=== PATIENT | male | born 1960 | race Caucasian/White ===

== ENCOUNTER 2022-07-10 14:59 | Emergency (ER) | payer OTHER ==
[2022-07-10] MEDS ORDERED: Pepcid 20 MG PO ONE (15:35)
[2022-07-10] MEDS ORDERED: solu-MEDROL 125 MG, Sterile H2O 10 ml 2 ML IM ONE ×2 (15:35)
[2022-07-10] MEDS ORDERED: BENADRYL 50 MG/ML IM ONE (15:35)
[2022-07-10] MEDS ORDERED: BENADRYL 50 MG/ML ONE (15:59)
[2022-07-10] MEDS ORDERED: Sterile H2O 10 ml IJ ONE (15:59)
[2022-07-10] MEDS ORDERED: Pepcid 20 MG ONE ×2 (15:59→16:02)
[2022-07-10] MEDS ORDERED: solu-MEDROL ONE (15:59)
--- NOTE | 2022-07-10 16:34 | ERPHSYRPT ---
- History of Present Illness Time Seen by Provider: 07/10/22 15:08 Source: patient Exam Limitations: no limitations Patient Subjective Stated Complaint: PT states "I was stung by a bee on my forearm and it is all swollen and red. IT feels stiff." Triage Nursing Assessment: Pt presented alert and oriented X 3, skin pwd. Pt ambulates with an upright steady gait. PT left forearm is swollen and red, no difficulty breathing, no haorseness , no coughing. Physician History: 61-year-old with history of diabetes mellitus on metformin presented in the ER with bee sting on left forearm almost an hour prior to arrival with p rogressively worsening pain and swelling and itching. He has taken Benadryl at home with no significant relief. Reports tightness in the forearm and pain with movements of the finger/wrist and forearm. No numbness or tingling in the fingers. No difficulty breathing or throat closing sensation. Timing/Duration: hour(s) (1), constant, sudden, worse Quality: itchy, painful Severity: moderate Location: extremities Possible Causes: insect sting Modifying Factors: Improves With: antihistamine Associated Symptoms: rash, swelling/mass/lumps Allergies/Adverse Reactions: bee venom protein (honey bee) Allergy (Severe, Verified 07/10/22 15:13) Swelling peanut Allergy (Severe, Verified 07/10/22 15:13) Swelling shellfish derived Allergy (Severe, Verified 07/10/22 15:13) Swelling Home Medications: Glimepiride 2 mg [Amaryl 2 MG] 2 mg PO DAILY 07/10/22 [History] Lisinopril/Hydrochlorothiazide [Lisinopril-Hctz 20-12.5 mg Tab] 1 each PO DAILY 07/10/22 [History] Simvastatin 10 mg [Zocor 10MG] 10 mg PO DAILY 07/10/22 [History] Hx Tetanus, Diphtheria Vaccination/Date Given: No Hx Influenza Vaccination/Date Given: No Hx Pneumococcal Vaccination/Date Given: No Immunizations Up to Date: Yes Travel Risk - International Travel Have you traveled outside of the country in past 3 weeks: No - Coronavirus Screening Are you exhibiting any of the following symptoms?: No Close contact with a COVID-19 positive Pt in past 14-21 Days: No - Vaccine Status Have you recieved a Covid-19 vaccination: No - Review of Systems Constitutional: No Symptoms Eyes: No Symptoms Ears, Nose, & Throat: No Symptoms Respiratory: No Symptoms Cardiac: No Symptoms Abdominal/Gastrointestinal: No Symptoms Musculoskeletal: No Symptoms Skin: Rash Neurological: No Symptoms Endocrine: No Symptoms Hematologic/Lymphatic: No Symptoms - Past Medical History Pertinent Past Medical History: Yes Neurological History: No Pertinent History ENT History: No Pertinent History Cardiac History: No Pertinent History Respiratory History: No Pertinent History Endocrine Medical History: No Pertinent History Musculoskeletal History: Other GI Medical History: No Pertinent History History: No Pertinent History Psycho-Social History: No Pertinent History Male Reproductive Disorders: No Pertinent History Other Medical History: l shoulder injury - Past Surgical History Past Surgical History: Yes Neuro Surgical History: No Pertinent History Cardiac: No Pertinent History Respiratory: No Pertinent History Gastrointestinal: Other Genitourinary: No Pertinent History Musculoskeletal: Orthopedic Surgery Male Surgical History: No Pertinent History Other Surgical History: [place] surgery and fistual repair in the past - Social History Smoking Status: Never smoker Exposure to second hand smoke: No Drug Use: none Patient Lives Alone: No - Nursing Vital Signs Nursing Vital Signs: Initial Vital Signs Temperature 97.6 F 07/10/22 15:08 Pulse Rate 92 H 07/10/22 15:08 Respiratory Rate 20 07/10/22 15:08 Blood Pressure 135/77 07/10/22 15:08 O2 Sat by Pulse Oximetry 95 07/10/22 15:08 Pain Scale Pain Intensity 0 - Physical Exam General Appearance: no apparent distress, alert Eye Exam: PERRL/EOMI Ears, Nose, Throat Exam: normal ENT inspection, pharynx normal, moist mucous membranes Neck Exam: normal inspection, non-tender, supple, full range of motion Respiratory Exam: normal breath sounds, lungs clear Cardiovascular Exam: regular rate/rhythm, normal heart sounds Back Exam: normal inspection Extremity Exam: swelling (Left forearm with tongue italo. Blanchable. Mild increased temperature. Minimal tenderness. Intact range of motion at wrist and elbow/fingers. Distal neurovascular intact.) Neurologic Exam: alert, oriented x 3, cooperative Skin Exam: normal color SpO2 Interpretation: normal SpO2: 98 O2 Delivery: Room Air Ordered Tests: Active Orders 24 hr Category Date Time Status POCT Glucose Check STAT Care 07/10/22 15:35 Active POCT GLUCOSE Stat Lab 07/10/22 16:27 Completed Medication Summary Discontinued Medications Generic Name Dose Route Start Last Admin Trade Name Edna PRN Reason Stop Dose Admin Methylprednisolone Sodium 0 mg 07/10/22 15:35 07/10/22 16:01 Succinate 125 mg/ Sterile IM 07/10/22 15:36 125 mg Water 2 ml STAT ONE Administration Diphenhydramine HCl 25 mg 07/10/22 15:35 07/10/22 16:02 Diphenhydramine Hcl 50 Mg/Ml Vial IM 07/10/22 15:36 25 mg STAT ONE Administration Diphenhydramine HCl Confirm 07/10/22 15:59 Diphenhydramine Hcl 50 Mg/Ml Vial Administered 07/10/22 16:00 Dose 50 mg .ROUTE .STK-MED ONE Famotidine 40 mg 07/10/22 15:35 07/10/22 16:01 Famotidine 20 Mg Tablet PO 07/10/22 15:36 40 mg STAT ONE Administration Famotidine Confirm 07/10/22 15:59 Famotidine 20 Mg Tablet Administered 07/10/22 16:00 Dose 20 mg .ROUTE .STK-MED ONE Famotidine Confirm 07/10/22 16:02 Famotidine 20 Mg Tablet Administered 07/10/22 16:03 Dose 20 mg .ROUTE .STK-MED ONE Methylprednisolone Sodium Succinate Confirm 07/10/22 15:59 Methylprednis Sod Succ 125 Mg/2 Ml Vial Administered 07/10/22 16:00 Dose 125 mg .ROUTE .STK-MED ONE Sterile Water Confirm 07/10/22 15:59 Water For Injection,Sterile 10 Ml Vial Administered 07/10/22 16:00 Dose 10 ml IJ .STK-MED ONE Lab/Rad Data: Laboratory Results 07/10/22 Range/Units 16:27 POC Glucometer 108 H (74 to 106) mg/dL - Progress Progress: improved Progress Note: 07/10/22 16:31 Is given Solu-Medrol/Benadryl/Pepcid, on reevaluation swelling started to improve. No respiratory symptoms. We will continue with these meds to go home, recommended elevation ice and will also give EpiPen to use as needed. Discussed signs symptoms of worsening needing return to ER which he seems understanding. Counseled pt/family regarding: diagnosis, need for follow-up - Departure Departure Disposition: Home Clinical Impression: Bee sting reaction Condition: Stable Critical Care Time: No Referrals: ESTELA ROBLES MD [Primary Care Provider] - Follow up/PCP as directed (In 2 days for reevaluation) Instructions: Insect Bites and Stings (DC) Additional Instructions: Take Tylenol as needed for pain. Keep it elevated. Intermittent ice application. Follow-up with primary care for reevaluation. Return to ER for increasing swelling, difficulty movements at elbow/wrist left fingers or if havi ng throat closing sensation/difficulty breathing. Use EpiPen as needed. Prescriptions: Diphenhydramine HCl 25 mg [Benadryl 25 mg Capsule] 25 mg PO Q4H PRN PRN #20 cap PRN Reason: Allergies Prednisone 20 mg [Deltasone 20 mg] 60 mg PO DAILY 5 Days #15 tablet Famotidine 20 mg [Pepcid 20 MG] 20 mg PO BID #10 tablet EPINEPHrine [Symjepi] 0.3 mg IJ DIRECTIONS UNKNOWN PRN 1 Days #1 unit PRN Reason: Allergies
[2022-07-10 17:24] VITALS: BP 116/63; PULSE 84; O2SAT 97
== END 2022-07-10 16:53 | disposition home or self-care (01) ==
LOC: ED 14:59
DX: T63.441A Toxic effect of venom of bees, accidental (unintentional), initial encounter (principal); M79.632 Pain in left forearm; Z79.899 Other long term (current) drug therapy; Z28.310 Unvaccinated for COVID-19; Z79.52 Long term (current) use of systemic steroids
CPT/HCPCS: 82947; 96372; 99283; J1200; J2930; A9270-GY

== ENCOUNTER 2024-05-23 09:01 | Day surgery (SDC) | payer BC ==
[2024-05-23] MEDS: TYLENOL EXTRA STRENGTH 500 MG PO ONE (09:28)
[2024-05-23] MEDS: Lactated Ringers 1,000 ML IV SCH (09:28)
[2024-05-23] MEDS: CLINDAMYCIN-D5W 900 MG/50 ML*** 900 MG/50 ML BAG IV STA (09:28)
[2024-05-23] MEDS: Decadron 4 MG PO ONE (09:29)
[2024-05-23] MEDS: celeBREX 100 MG PO ONE (09:29)
[2024-05-23] MEDS: NEURONTIN PO ONE (09:29)
[2024-05-23 09:55] LABS: Absolute Neutrophil Ct (ANC) 6.36 x10^3/uL (1.78-5.38); BASOPHIL % 0.4 % (0.2-1.2); Basophil (Absolute #) 0.04 x10^3/uL (0.01-0.08); Eosinophil % 2.4 % (0.8-7.0); Eosinophil (Absolute #) 0.23 x10^3/uL (0.04-0.54); Hematocrit 42.6 % (40.1-51.0); Hemoglobin 14.3 g/dL (13.7-17.5); IMMATURE GRAN # 0.04 x10^3u/L (0.001-0.031); IMMATURE GRAN % 0.4 % (0.001-0.429); Lymphocyte (Absolute #) 2.19 x10^3/uL (1.32-3.57); Lymphocytes % 23.1 % (21.8-53.1); Mean Cell Volume 87.1 fL (79.0-92.2); Mean Corpuscular Hemoglobin 29.2 pg (25.7-32.2); Mean Corpuscular Hgb Concent. 33.6 g/dL (32.3-36.5); Mean Platelet Volume 9.4 fL (9.4-12.4); Monocyte (Absolute #) 0.63 x10^3/uL (0.30-0.82); Monocytes % 6.6 % (5.3-12.2); Neutrophil % 67.1 % (34.0-67.9); Platelet Count 193 x10^3/uL (163-337); Red Blood Count 4.89 x10^6/uL (4.63-6.08); Red Cell Distribution Width 12.8 % (11.6-14.4); White Blood Count 9.5 x10^3/uL (4.23-9.07)
[2024-05-23] MEDS ORDERED: Marcaine Mpf 0.5% Vial 30 Ml ONE (10:05)
[2024-05-23] MEDS ORDERED: Epinephrine Preservative Free 1 MG/ML ONE ×3 (10:05→14:49)
[2024-05-23] MEDS ORDERED: Kenalog-40 ONE (10:05)
[2024-05-23 10:08] LABS: ALBUMIN 3.7 g/dL (3.5-5.0); BILIRUBIN,TOTAL 0.6 mg/dL (0.2-1.3); Calcium 9.1 mg/dL (8.4-10.2); Creatinine 1 0.9 mg/dL (0.66-1.25); Total Protein 6.7 g/dL (6.3-8.2)
[2024-05-23] MEDS ORDERED: Versed 2 MG/2 ML Injection ONE (12:18)
[2024-05-23] MEDS ORDERED: Marcaine 0.5%/Epinephrine 10 ML ONE (12:18)
[2024-05-23] MEDS ORDERED: Xylocaine-Mpf 2% 5 Ml Vial ONE ×2 (12:26→12:54)
[2024-05-23] MEDS ORDERED: ROCURONIUM BROMIDE IV ONE ×2 (12:50→12:54)
[2024-05-23] MEDS ORDERED: DIPRIVAN 200 MG/20 ML IV ONE (12:53)
[2024-05-23] MEDS ORDERED: Decadron 4 MG INJ ONE (12:54)
[2024-05-23] MEDS ORDERED: Zofran 4 MG/2 ML VIAL ONE (12:54)
[2024-05-23] MEDS ORDERED: SUBLIMAZE 100 MCG/2 ML ONE (13:02)
[2024-05-23] MEDS ORDERED: Lactated Ringers 1,000 ML IV ONE ×2 (13:02→14:39)
[2024-05-23] MEDS ORDERED: PHENYLEPHRINE HCL ONE (13:42)
[2024-05-23] MEDS ORDERED: BRIDION 200MG/2ML IV ONE (14:32)
[2024-05-23 17:03] VITALS: RESP 18
[2024-05-23 17:16] VITALS: BP 120/83; PULSE 94; TEMP 97; O2SAT 97
--- NOTE | 2024-05-25 09:48 | OP ---
SURGERY DATE/TIME: 05/23/2024 4885 - [id number] PREOPERATIVE DIAGNOSIS: Right full-thickness rotator cuff tear. PROCEDURE: Right arthroscopic rotator cuff repair. SURGEON: Adal Valladares MD SILK BRUSHER: Marie Rowe ANESTHESIA: General, plus interscalene block. FINDINGS: A 15 mm supraspinatus tear with about 1.5 cm of retraction. The rotator cuff surfaces were grade 1. Biceps tendon was not well visualized. The labrum was frayed. ESTIMATED BLOOD LOSS: 0. FLUIDS: Per the anesthesia records. SPECIMENS: None. DRAINS: None. COMPLICATIONS: None. INDICATIONS: Patient is a 63-year-old white male with painful right shoulder refractory to conservative care. He wished to have this repaired for pain relief. DESCRIPTION OF PROCEDURE AND FINDINGS: The patient was seen in the holding room. We identified the right shoulder as correct. This was initialed by me. He had 900 mg of Cleocin due to cephalexin allergy. He already had an interscalene block. He was then given general anesthesia and positioned in beach chair at 45-degree angle with his right arm free. He had a kidney rest on the right side. He had a wedge pillow behind his calves. He had eye protection on and had his left arm on a padded stand. He had sterile prepping and draping of the right upper extremity. A time-out was performed by me. The arthroscopic landmarks were marked. An 18-gauge spinal needle was entered into the posterior joint from position of 2 cm medial, 1 cm inferior to the posterolateral corner of the acromion aiming towards the coracoid. This was then followed by a vertical 5 mm incision over the needle, and then a switching stick was used to enter the joint. Then, the pump pressure was set at 45 mmHg. Irrigating fluid was normal saline with 1 mL of 1:100,000 epinephrine per 3 L bag. The 30-degree scope was used to inspect the joint. An anterior portal was then made from 1 cm superior and lateral to the coracoid, entering the joint with an 18-gauge spinal needle, then followed again with an 11 blade and then a switching stick. Then, the Arthrex 7 mm disposable cannula was placed. Outflow was connected to this. A shaver was used to debride the labrum and underside of the rotator cuff. The rotator cuff tear was seen at the supraspinatus insertion. The cannula was then removed, and the subacromial space was entered with the blunt trocar with 30-degree scope coming out the anterior portal. The 7 mm cannula was then placed through this into the joint. Shaver was placed through this cannula and was used to shave the undersurface of the acromion removing a slight amount of bone. A multiheaded bipolar was used to remove soft tissue from the bone. The rotator cuff tear was identified and cleaned up with a shaver. The tuberosity was prominent. This was debrided for anchor insertion. Also, a lateral portal was placed then using an Arthrex PassPort cannula laterally into the subacromial space. The Novast suture passer was used to pass two 1.3 mm FiberTapes in horizontal mattress fashion through the rotator cuff. An anchor hole was then made in the greater tuberosity with an awl for the 4.75 mm Arthrex SwiveLock anchor. However, when putting the anchor in, sustained a fracture through the greater tuberosity; therefore, a new hole had to be made slightly posterior and lateral to the previous hole. The sutures were tensioned and then the SwiveLock with the 4 FiberTape strands, which had been placed through this eyelet, were then placed into the hole and advanced. Then, the screw was screwed in until it was flush with the bone. The SutureTapes were then all cut off with the cutter. This anchor still had 1 additional #2 FiberWire-type suture on it. This was placed through the more anterior portion of the cuff and then was shuttled through the anchor using the shuttle suture. This was tightened down and then cut off flush also for a total of 5 suture strands in the repair. The final views showed good repair. The wounds were then thoroughly irrigated. The cannulas were removed. The subcutaneous tissue was closed with 3-0 Monocryl subcuticular suture, Steri-Strips and Mastisol, and sterile dressing was applied. Patient was placed in a sling which held the arm abducted about 15 degrees. Plan is for patient to do gentle pendulum exercises. No physical therapy for 6 weeks. Avoid overhead motion. He will go home on Percocet 5 mg 1 p.o. every4 hours p.r.n., dispense #30. Return in 1 week for wound check.
== END 2024-05-23 17:30 | disposition home or self-care (01) ==
LOC: SDC 09:01 → EDSTATUS 11:29 → SDC 17:30
PROVIDERS: ATTEND Orthopaedic Surgery
DX: M75.121 Complete rotator cuff tear or rupture of right shoulder, not specified as traumatic (principal); E11.9 Type 2 diabetes mellitus without complications
CPT/HCPCS: 29827; 36415; 76937; 80053; 82947; 83036; 85025; 93005; C1713; J0171; J1100; J2250; J2371; J2405; J2704; J3010; J3301; A9270-GY

== ENCOUNTER 2024-10-21 15:01 | Emergency (ER) | payer BC ==
[2024-10-21 15:11] VITALS: BP 97/75; PULSE 62; RESP 18; TEMP 97.4; O2SAT 100
--- NOTE | 2024-10-21 15:34 | ERPHSYRPT ---
- History of Present Illness Time Seen by Provider: 10/21/24 15:31 Source: patient Exam Limitations: no limitations Patient Subjective Stated Complaint: pt states he as trying to get a tank out and the strap broke and he landed on hes right shoulde. co pain to right should er Triage Nursing Assessment: pt alert, walked in holding shoulder, resp easy, skin w/d/p, has strong radial pulse, swelling to shoulder, no bruisign . Physician History: pt states he as trying to get a tank out and the strap broke and he landed on hes right shoulder. co pain to right shoulder, unable to move right upper extrimity Occurred: just prior to arrival Quality: constant Severity of Pain-Max: moderate Severity of Pain-Current: moderate Extremities Pain Location: shoulder: right Associated Symptoms: none Body Map: 1 - pain, restricted ROM Allergies/Adverse Reactions: bee venom protein (honey bee) Allergy (Severe, Verified 10/21/24 15:05) Swelling peanut Allergy (Severe, Verified 10/21/24 15:05) Swelling shellfish derived Allergy (Severe, Verified 10/21/24 15:05) Swelling cephalexin Allergy (Verified 10/21/24 15:05) ciprofloxacin Allergy (Verified 10/21/24 15:05) metronidazole [From Flagyl] Allergy (Verified 10/21/24 15:05) Home Medications: Simvastatin 10 mg [Zocor 10MG] 10 mg PO DAILY 07/10/22 [History] Albuterol Sulfate 2.5 mg IH QID PRN PRN 04/30/24 [History] Celecoxib 200 mg PO BID 04/30/24 [History] Gabapentin 300 mg PO TID 04/30/24 [History] Losartan/Hydrochlorothiazide [Losartan-Hctz 100-12.5 mg Tab] 1 each PO DAILY 04/30/24 [History] Metformin HCl 500 mg [Glucophage 500 MG] 500 mg PO BIDWM 04/30/24 [History] Mv-Min/Folic/K1/Lycopen/Lutein [Men 50 Plus Multivitamin Tab] 1 each PO DAILY 04/30/24 [History] Semaglutide [Ozempic] 1 mg SQ WEEKLY 04/30/24 [History] Hx Tetanus, Diphtheria Vaccination/Date Given: No Hx Influenza Vaccination/Date Given: No Hx Pneumococcal Vaccination/Date Given: No Immunizations Up to Date: Yes Travel Risk - International Travel Have you traveled outside of the country in past 3 weeks: No - Emerging Infectious Disease Are you exhibiting symptoms associated with any current EIDs: No - Review of Systems Constitutional: No Fever, No Chills Eyes: No Symptoms Ears, Nose, & Throat: No Symptoms Respiratory: No Cough, No Dyspnea Cardiac: No Chest Pain, No Edema, No Syncope Abdominal/Gastrointestinal: No Abdominal Pain, No Nausea, No Vomiting, No Diarrhea Genitourinary Symptoms: No Dysuria Musculoskeletal: Injury, Joint Pain, Joint Swelling, No Back Pain, No Neck Pain Skin: No Rash Neurological: No Dizziness, No Focal Weakness, No Sensory Changes Psychological: No Symptoms Endocrine: No Symptoms All Other Systems: Reviewed and Negative - Past Medical History Pertinent Past Medical History: Yes Neurological History: No Pertinent History ENT History: No Pertinent History Cardiac History: High Cholesterol, Hypertension Respiratory History: Sleep Apnea Endocrine Medical History: Diabetes Type II Musculoskeletal History: Arthritis GI Medical History: No Pertinent History History: No Pertinent History Psycho-Social History: No Pertinent History Male Reproductive Disorders: No Pertinent History Other Medical History: PMH: STRESS TEST TODAY D/T SHORTNESS OF BREATH WITH ACTIVITY. FOLLOWING UP WITH CARDIOLOGY FOR POSSIBLE STENT. PSH: L TSA, HERNIA REPAIR - Past Surgical History Past Surgical History: Yes Neuro Surgical History: No Pertinent History Cardiac: No Pertinent History Respiratory: No Pertinent History Gastrointestinal: Hernia Repair, Other Genitourinary: No Pertinent History Musculoskeletal: Orthopedic Surgery Male Surgical History: No Pertinent History Other Surgical History: [place] surgery x 2and fistual repair in the past - Social History Smoking Status: Never smoker Exposure to second hand smoke: No Drug Use: none Patient Lives Alone: No - Social Determinants of Health Will the patient participate in the screening: Declined to provide - Nursing Vital Signs Nursing Vital Signs: Initial Vital Signs Temperature 97.4 F 10/21/24 15:10 Pulse Rate 62 10/21/24 15:10 Respiratory Rate 18 10/21/24 15:10 Blood Pressure 97/75 10/21/24 15:10 O2 Sat by Pulse Oximetry 100 10/21/24 15:10 Pain Scale Pain Intensity 7 - Physical Exam General Appearance: alert Eyes, Ears, Nose, Throat Exam: moist mucous membranes Neck Exam: non-tender, supple Cardiovascular/Respiratory Exam: chest non-tender, normal breath sounds, regular rate/rhythm, no respiratory distress Abdominal Exam: non-tender, No guarding Back Exam: normal inspection, No vertebral tenderness Shoulder Exam: bone tenderness, limited ROM, pain, soft tissue tenderness, sw elling Elbow/Forearm Exam: normal inspection Wrist Exam: normal inspection Neuro/Tendon Exam: normal sensation, normal motor functions Mental Status Exam: alert, oriented x 3, cooperative Skin Exam: normal color, warm, dry SpO2: 100 Procedures - Splinting Time of Procedure: 15:33 Location of Splint: Right Type of Splint: Other (shoulder sling) Splint Applied By: ED Nurse Pre-Proc Neuro Vasc Exam: normal Post-Proc Neuro Vasc Exam: neurovascular intact, good alignment - Course Nursing assessment & vital signs reviewed: Yes - Radiology Exams Shoulder X-ray Interpretation: Interpreted by me, Reviewed by me, Non-displaced Fracture (neck of humurus) Ordered Tests: Active Orders 24 hr Category Date Time Status SHOULDER Stat Exams 10/21/24 15:23 Taken - Progress Progress: improved, pain not gone completely Counseled pt/family regarding: diagnosis, need for follow-up, rad results Medical Desision Making - Independent Historian Additional History obtained from: Spouse - Diagnostic Testing Diagnostic test were ordered, analyzed, and reviewed by me: Yes Radiological Interpretation: Interpreted by me, Reviewed by me - Departure Departure Disposition: Home Clinical Impression: Humerus head fracture Qualifiers: Encounter type: initial encounter Fracture type: closed Laterality: right Qualified Code(s): S42.291A - Other displaced fracture of upper end of right humerus, initial encounter for closed fracture Condition: Stable Critical Care Time: No Referrals: WENDI GUAMAN DO [Primary Care Provider] - [facility]-Ortho M-F [id number] Instructions: Shoulder Fracture (DC) Additional Instructions: Discharge/Care Plan REGIRHONDA BARON was seen on 10/21/24 in the Emergency Room. The patient was counseled regarding Diagnosis,Lab results, Imaging studies, need for follow up and when to return to the Emergency Room. Prescriptions given: Discharge Note I have spoken with the patient and/or caregivers. I have explained the patient's condition, diagnosis and treatment plan based on the information available to me at this time. I have answered the patient's and/or caregiver's questions and addressed any concerns. The patient and/or caregivers have as good understanding of the patient's diagnosis, condition and treatment plan as can be expected at this point. The vital signs have been stable. The patient's condition is stable and appropriate for discharge from the emergency department. The patient will pursue further outpatient evaluation with the primary care physician or other designated or consulting physician as outlined in the discharge instructions. The patient and/or caregivers are agreeable to this plan of care and follow-up instructions have been explained in detail. The patient and/or caregivers have received these instruction. The patient/and or caregivers are aware that any significant change in condition or worsening of symptoms should prompt an immediate return to this or the closest emergency department or call 911. REGIRHONDA was seen on 10/21/24 n the Emergency Room. At that time you were treated for an emergent condition, during your visit Laboratory, Radiology and/or other procedures may have been ordered. It is very important that you follow-up with your Primary Care Physician WENDI GUAMAN, within the next 24-48 hours to review your Emergency Room visit and the final results of testing that was ordered. Some test results such as Urine Cultures, Blood Cultures, and other cultures if ordered will not be finalized for 24-48 hours. If you do not have a Primary Care Provider please call the medical records department at [phone] ext [phone] to obtain a copy of your results or you may sign into our patient portal to obtain these results by visiting us @ [email or web address] and completing the following steps: 1. Click on the Patient Portal link 2. Click the Patient Self Enrollment Link to complete the enrollment form and entering your 3. Once the enrollment form is completed you will receive an email with a temporary ID and password at the email address you provided. 4. Next choose a user name and password. Your user name must be at least 4 characters long and your password must be at least 4 characters long. 5. Choose a security question from the list and provide your answer to the question. If you already have signed into the Health Portal you may access your Health Care Information 13/06 by the following steps: 1. Login to our website @ [email or web address] 2. Enter your original user name and password. FAQS The [facility] Health Portal is an online tool that contains your Lab Results, Radiology Reports, Visit History, Discharge Instructions and Health Summary Lab and Radiology Results will not be available for 72 hours on the portal. The Portal is a secure site, passwords are encryted and URLs are re-written so they cannot be copied and pasted. You and authorized family members are the only ones who can access your Portal. Also there is a timeout feature that protects your information if you leave the Portal page open. If you have technical difficulty please use the Contact Us link on the page this will allow you to submit any questions you have regarding the Portal or you may contact the Medical Record Department at [phone]. Prescriptions: Oxycodone HCl/Acetaminophen [Percocet 5-325 mg Tablet] 1 each PO Q4H PRN PRN #30 tablet MDD 6 PRN Reason: Pain
[2024-10-21] MEDS ORDERED: TORAdol 30 mg Injection ONE (15:42)
[2024-10-21] MEDS: TORAdol 30 mg Injection IM ONE (15:43)
--- NOTE | 2024-10-21 20:37 | XRAY ---
Indication: Pain following fall. Comparison: April 09, 2024 3 view right shoulder demonstrates new nondisplaced humeral neck acute fracture. Stable osteopenia, mild glenohumeral/AC degenerative changes, and mild multilevel cervical degenerative spondylosis.
== END 2024-10-21 16:05 | disposition home or self-care (01) ==
LOC: ED 15:01
DX: S42.294A Other nondisplaced fracture of upper end of right humerus, initial encounter for closed fracture (principal); W18.09XA Striking against other object with subsequent fall, initial encounter
CPT/HCPCS: 73030; 96372; 99283; J1885